=== PATIENT | female | born 1995 ===

== ENCOUNTER 2021-12-10 13:30 | Outpatient (RCR) | payer OTHER, SELFPAY ==
[2021-11-26 13:48] LABS: Amphetamine Screen Urine Not Detected (Not Detect); Barbiturates, Urine Not Detected (Not Detect); Benzodiazepines Screen Urine Not Detected (Not Detect); Cannabinoid Screen Urine Not Detected (Not Detect); Cocaine Screen Urine Not Detected (Not Detect); Fentanyl, urine Not Detected (Not Detect); Opiate Screen Urine Not Detected (Not Detect); Phencyclidine Screen Urine Not Detected (Not Detect)
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
[2021-11-26 15:08] VITALS: BP 110/70; PULSE 80; TEMP 37.2; BMI 24.3
--- NOTE | 2021-11-27 08:50 | PC.NURSE ---
Client case was opened in treatment team
--- NOTE | 2021-11-27 12:11 | PC.ADMIT ---
Patient is a 26 year old Non-Binary individual who uses they/them pronouns and goes by the name of, Rivera . Patient was referred by [facility] behavioral health unit where they were admitted d/t increase in depression with SI having thoughts to jump off a bridge. Patient reportedly walked to the bridge however decided to reach out for help and was subsequently hospitalized. Patient has a dx of Bipolar disorder recent episode depressed. Patient was also was struggling with AH noted to be trauma related having flashbacks and dissociating. Patient using marijuana daily. They have a history of trying cocaine and heroin. They also used oxycontin while in college and xanax as a teenager. Patient has a history of trauma. They are currently living with two roommates. Patient is alert and oriented x4. calm and cooperative. Presents with depressed mood and anxious affect. When asked if they had SI they stated, the urge is there however denied any plans of intent to kill themselves. Patient has a copy of [facility] safety plan if needed. Medications reconciled with patient and [facility] discharge paperwork. Patient stated her prescriber took her off of Seroquel. Taking medications as prescribed.
--- NOTE | 2021-12-03 09:34 | PC.NURSE ---
Patient did not show up to the program this morning. I called Rivera and they stated they are not feeling well and have been vomiting. They plan to f/u with their PCP today. Patient stated she was feeling ok mentally and no safety concerns. Plans on attending the program tomorrow.
--- NOTE | 2021-12-08 10:01 | PC.NURSE ---
Rivera did not show up to the program this morning. Lisa called and spoke to Rivera this morning and they stated they would not be in as a friend and they want to be with friends today.
--- NOTE | 2021-12-10 10:23 | P.PNPSP_ITS ---
Subjective Subjective Date of Service: 12/10/21 Reason For Visit: bipolar Medical Problems Affecting Mental Status: No Interim History: Reports feels okay , ready to discharge from [facility] today. Plans to step-down to the [place] [facility] at [facility] in [place], as program is currently virtual. No SI reported, no safety concerns. Had abilify to 7.5mg yesterday, by outpatient psych provider. Has found program helpful. Medication Compliance: Yes Side effects from medications: Yes (Had some symptoms with 10 mg dose of Abilify, dose has since been lowered. ) Attending Groups: Yes Review of Systems Acute medical concerns: No Medical Review of Systems: unchanged Review of Systems Review of Systems Yes all other systems are reviewed and are negative Constitutional: Reports no additional constitutional complaints Mental Status Exam Mental Status Exam Narrative: NAD Patient Appearance: Well Grooomed and Appropriate Patient Orientation: Person, Place, Time and Situation Level of Consciousness: Appropriate Patient Behavior: Appropriate, Cooperative and Good Eye Contact Mood Description: Calm and Appropriate Affect Description: Calm and Appropriate Patient Cognition Impaired: No Ability to Follow Directions: Excellent Speech Pattern: Clear, Appropriate and Coherent Memory Description: Intact Hallucinations: Auditory (voices, reports as baseline) Delusions: Not Present Perceptual Disturbances: Depersonalization (Per report experiences dissociative episodes.) Thought Process: Intact Thought Content: positive for Intact Judgement: Good Diagnostics Vital Signs (24Hr): BMI result Body Mass Index 24.3 Assessment & Plan Assessment & Plan (1) PTSD (post-traumatic stress disorder): Status: Acute Code(s): F43.10 - Post-traumatic stress disorder, unspecified Assessment and Plan: Patient reports has never been diagnosed with bipolar disorder until recent hospitalization. States that outpatient provider believes her symptoms are more based in PTSD. Reports feeling safe, stable, ready for discharge from [facility] at this time. Does not see cannabis use is any concern, does not use excessively, and that her providers are aware. Feels ready for step-down to [place] program, [facility] via online, with less of a commitment regarding days and times. Reviewed discharge summary paperwork, medications, etc. with patient. (2) Bipolar 1 disorder, depressed, severe: Status: Acute Code(s): F31.4 - Bipolar disorder, current episode depressed, severe, without psychotic features Plan 1. Patient appears stable for discharge from [facility] at this time. 2. Patient to follow up with outpatient providers going forward. Patient educated on: diagnosis, medication risk/benefits and therapeutic strategies Reason for contiued partial hosp. stay Substantial Risk for: stable for discharge Certification I certify that partial hospital treatment is medically necessary due to the symptoms and problems resulting from the patient's mental illness and the failure to treat the patient at the partial hospital level of care would likely result in the patient requiring inpatient psychiatric care which could not be prevented at a less intensive level of care. I spent minutes with the patient and/or on the patient floor today, greater than?50% of which was spent counseling/coordinating care. Discharge Plan Discharge Attending provider: Kirk Colón Medications: No Action nicotine (polacrilex) 2 mg Gum 2 mg BUCCAL Q2H norethindrone acetate 5 mg Tablet 5 mg PO DAILY albuterol sulfate [ProAir HFA] 90 mcg/actuation Hfa Aerosol Inhaler 2 puff INHALATION Q6H PRN (Reason: Shortness Of Breath) testosterone 1 % (25 mg/2.5gram) Gel In Packet 1 packet TRANSDERMAL DAILY aripiprazole 10 mg Tablet 10 mg PO BEDTIME escitalopram oxalate [Lexapro] 5 mg Tablet 5 mg PO DAILY gabapentin 300 mg Tablet 300 mg PO BEDTIME Advair HFA 115-21 mcg/actuation Hfa Aerosol Inhaler 2 puff INHALATION BID Stand Alone Forms: Patient Portal Discharge page Patient Education: Bipolar Disorder (DC), Cannabis Abuse (DC)
--- NOTE | 2021-12-10 15:06 | PC.NURSE ---
Patient discharged from [facility] today 12/10/21. Discharge routine. Patient reports ready for discharge, denies SI/HI with no plan or intent. Patient met with MACHINE MAINTENANCE SERVICER today for medication appointment. MACHINE MAINTENANCE SERVICER reviewed discharge medications including use, dose, frequency, side effects. Patient states understanding of discharge medications and plan. Medication list faxed to PCP and prescriber.
--- NOTE | 2021-12-11 12:11 | PC.NURSE ---
Message regarding clients discharge left for Dejah Harris [facility]
== END 2021-12-10 23:59 | disposition home or self-care (01) ==
LOC: HO.PHPA 13:30
PROVIDERS: Nurse Practitioner Psychiatric/Mental Health; Visit Provider Psychiatry & Neurology Psychiatry
DX: F31.4 Bipolar disorder, current episode depressed, severe, without psychotic features (principal); F43.10 Post-traumatic stress disorder, unspecified; F12.10 Cannabis abuse, uncomplicated; Z79.899 Other long term (current) drug therapy
CPT/HCPCS: 80307; 90791; 90853